=== PATIENT | female | born 1960 | race Two or more races ===

== ENCOUNTER 2021-09-18 09:01 | Outpatient (CLI) | payer OTHER | END 2021-09-18 09:15 | disposition home or self-care (01) | LOC: MAMO-SONO 09:01 | PROVIDERS: ATTEND Obstetrics & Gynecology | DX: Z12.31 Encounter for screening mammogram for malignant neoplasm of breast (principal); N60.11 Diffuse cystic mastopathy of right breast; N60.12 Diffuse cystic mastopathy of left breast ==